=== PATIENT | female | born 1990 | race Two or more races ===

== ENCOUNTER 2017-04-03 20:06 | Emergency (ER) | payer OTHER ==
[2017-04-03 20:13] VITALS: BP 116/81; PULSE 81; TEMP 98.3; BMI 28.8
--- NOTE | 2017-04-03 20:44 | PDOC ---
History of Present Illness - General Chief Complaint: Sore Throat Stated Complaint: COLD SYMPTOMS Time Seen by Provider: 04/03/17 20:18 - History of Present Illness Initial Comments: 04/03/17 20:49 CHIEF COMPLAINT: HISTORY OF PRESENT ILLNESS: 26-year-old female with history of hypothyroidism presents to [facility] with cold symptoms intermittently for the last 2 months. Patient reports that 2 weeks ago she started having some sinus pressure, congestion, and cough, patient reports that she wakes up in the mornings with some productive cough with phlegm, and she feels her ears are itchy and has some pressure. 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 Patient has not taken any Motrin or Tylenol as she has not had any fever or chills. She denies any contact with homeless shelters or clients with TB. No recent travel or sick contacts. PAST MEDICAL HISTORY: Denies past medical history FAMILY HISTORY: Denies SOCIAL HISTORY:Denies tobacco, alcohol, illicit drug use. SURGICAL HISTORY: Denies ALLERGIES: No known drug allergies REVIEW OF SYSTEMS General/Constitutional: Denies fever or chills. Denies weakness, weight change. HEENT: Sinus pressure. Denies change in vision. Denies ear pain or discharge. Denies sore throat. Cardiovascular: Denies chest pain or shortness of breath. Respiratory: Intermittent coughing and sneezing for the last 2 months. Denies cough, wheezing, or hemoptysis. Gastrointestinal: Denies nausea, vomiting, diarrhea or constipation. Denies rectal bleeding. Genitourinary: Denies dysuria, frequency, or change in urination. Musculoskeletal: Denies joint or muscle swelling or pain. Denies neck or back pain. Skin and breasts: Denies rash or easy bruising. PHYSICAL EXAM General Appearance: Well-appearing, appropriately dressed. No apparent distress , no intoxication. HEENT: EOMI, PERRLA, normal ENT inspection, normal voice, TMs normal, pharynx normal. No conjunctival pallor. No photophobia, scleral icterus. Neck: Supple. Trachea midline. No tenderness, rigidity, carotid bruit, stridor , lymphadenopathy, or thyromegaly. Respiratory/Chest: Lungs CTAB. No shortness of breath, chest tenderness, respiratory distress, accessory muscle use. No crackles, rales, rhonchi, stridor , wheezing, dullness Cardiovascular: RRR. S1, S2. No JVD, murmur, bradycardia, tachycardia. Vascular Pulses: Dorsalis-Pedis (R): 2+, Dorsalis-Pedis (L): 2+ Gastrointestinal/Abdominal: Normal bowel sounds. Abdomen soft, non-distended. No tenderness or rebound tenderness. No organomegaly, pulsatile mass, guarding , hernia, hepatomegaly, splenomegaly. Lymphatic: No adenopathy, tenderness. Musculoskeletal/Extremities: Normal inspection. FROM of all extremities, normal capillary refill. Pelvis Stable. No CVA tenderness. No tenderness to extremities, pedal edema, swelling, erythema or deformity. Integumentary: Appropriate color, dry, warm. No cyanosis, erythema, jaundice or rash Neurologic: vehicle sales professional II-XII intact. Fully oriented, alert. Appropriate mood/affect. Motor strength 5/5. No appreciable EOM palsy, facial droop or sensory deficit. Past History - Past Medical History Allergies/Adverse Reactions: Allergies Allergy/AdvReac Type Severity Reaction Status Date / Time No Known Allergies Allergy Verified 04/03/17 20:10 Home Medications: Ambulatory Orders Levothyroxine [Synthroid -] 75 mcg PO DAILY 03/27/16 Diphenhydramine HCl [Benadryl -] 25 mg PO HS PRN #21 capsule 04/03/17 Loratadine [Claritin] 10 mg PO DAILY #30 tablet 04/03/17 Pseudoephedrine HCl [Sudafed 12 Hour] 120 mg PO BID PRN #20 tablet.er 04/03/17 Hypercholesterolemia: Yes Thyroid Disease: Yes (hypo) - Psycho/Social/Smoking Cessation Hx Suicidal Ideation: No Smoking History: Never smoked Hx Alcohol Use: No Drug/Substance Use Hx: No Substance Use Type: None *Physical Exam - Vital Signs Last Vital Signs Temp Pulse Resp BP Pulse Ox 98.3 F 81 16 116/81 98 04/03/17 20:11 04/03/17 20:11 04/03/17 20:11 04/03/17 20:11 04/03/17 20:11 Medical Decision Making - Medical Decision Making 04/03/17 20:52 26-year-old female with history of hypothyroidism presents to [facility] with cold symptoms intermittently for the last 2 months. Exam unremarkable. Likely seasonal allergies as symptoms come and go. Claritin, sudafed, benadryl rxes sent to pharm Advised patient to take medications as prescribed and to f/u with PCP if symptoms persist. Advised patient of signs and symptoms for return to ER; patient verbalize understanding agrees to plan. *DC/Admit/Observation/Transfer Diagnosis at time of Disposition: Allergic rhinitis Qualifiers: Allergic rhinitis trigger: unspecified Allergic rhinitis seasonality: seasonal Qualified Code(s): J30.2 - Other seasonal allergic rhinitis - Discharge Dispostion Disposition: HOME Condition at time of disposition: Stable Admit: No - Prescriptions Prescriptions: Diphenhydramine HCl [Benadryl -] 25 mg PO HS PRN #21 capsule PRN Reason: allergies Loratadine [Claritin] 10 mg PO DAILY #30 tablet Pseudoephedrine HCl [Sudafed 12 Hour] 120 mg PO BID PRN #20 tablet.er PRN Reason: congestion - Referrals Referrals: Ronan Wolf MD [Primary Care Provider] - - Patient Instructions Printed Discharge Instructions: DI for Allergic Rhinitis Additional Instructions: Please take medications as prescribed and follow up with your primary care doctor next week if symptoms persist. As discussed, if you develop fever, nausea , chills, diarrhea, or any new or worsening symptoms, please return to ER.
== END 2017-04-03 21:00 | disposition home or self-care (01) ==
LOC: JERFT 20:06
DX: J30.2 Other seasonal allergic rhinitis (principal); E03.9 Hypothyroidism, unspecified; E78.00 Pure hypercholesterolemia, unspecified
CPT/HCPCS: 99281-25

== ENCOUNTER 2017-12-16 07:23 | Emergency (ER) | payer OTHER ==
[2017-12-16 07:49] VITALS: BP 129/86; PULSE 110; TEMP 101.4; BMI 28.9
[2017-12-16] MEDS ORDERED: ACETAMINOPHEN 325 MG TABLET (FP) PO ONE (08:31)
[2017-12-16] MEDS ORDERED: ACETAMINOPHEN 325 MG TABLET (FP) ONE (08:35)
--- NOTE | 2017-12-16 08:39 | PDOC ---
Attending Attestation - Resident Resident Name: Rk Rush - ED Attending Attestation I have performed the following: I have examined & evaluated the patient, The case was reviewed & discussed with the resident, I agree w/resident's findings & plan, Exceptions are as noted - HPI HPI: 12/16/17 08:37 27y F hx of pre -dm, hypothyroidism, presents with complaint of fever, sore throat, headache, cough. No cp, sob, diehl, hemotpysis, lower extremity edema, vomiting, abd pain. lungs clear well apearing NAD posterior pharynx clear HR rrr abd soft notnender no pitting edema suspect influenza/flu like illness will terat with tamiflu pmd fu in 4-5 days - Physicial Exam PE: 12/17/17 07:45 see above - Medical Decision Making 12/17/17 07:45 see above
--- NOTE | 2017-12-16 08:48 | PDOC ---
History of Present Illness - General Chief Complaint: Weakness Stated Complaint: WEAKNESS Time Seen by Provider: 12/16/17 07:39 History Source: Patient Exam Limitations: No Limitations - History of Present Illness Initial Comments: 12/16/17 08:45 The patient is a 27F with a PMH of prediabetes and hypothyroidism who presents to the ER with flu-like symptoms. The patient states that her fever, sore throat , and cough have been present for 1 day. She states that every time she coughs she gets a bad headache. She denies any symptoms of CP, SOB, but admits to nausea with no vomiting. She states that her father also has symptoms like hers. Past History - Past Medical History Allergies/Adverse Reactions: Allergies Allergy/AdvReac Type Severity Reaction Status Date / Time No Known Allergies Allergy Verified 12/16/17 07:31 Home Medications: Ambulatory Orders Levothyroxine [Synthroid -] 88 mcg PO DAILY 03/27/16 Ondansetron [Zofran *Odt*] 8 mg SL BID #10 od.tablet 12/16/17 Oseltamivir Phosphate [Tamiflu -] 75 mg PO BID #10 capsule 12/16/17 COPD: No Hypercholesterolemia: Yes Thyroid Disease: Yes (hypo) - Suicide/Smoking/Psychosocial Hx Smoking History: Never smoked Have you smoked in the past 12 months: No Information on smoking cessation initiated: No Hx Alcohol Use: No Drug/Substance Use Hx: No Substance Use Type: None Review of Systems - Review of Systems Able to Perform ROS?: Yes Comments:: 12/16/17 08:50 GENERAL/CONSTITUTIONAL: Positive for fevers and chills. No weakness. HEAD, EYES, EARS, NOSE AND THROAT: Positive for sore throat. No change in vision. No ear pain or discharge. CARDIOVASCULAR: No chest pain, palpitations, or lightheadedness. RESPIRATORY: Positive for cough. No wheezing, shortness of breath, or hemoptysis. GASTROINTESTINAL: Positive for nausea. No vomiting, diarrhea, constipation, or abdominal pain. GENITOURINARY: No dysuria, frequency, hematuria, or change in urination. MUSCULOSKELETAL: Postive for myalgias. No neck or back pain. SKIN: No rash or lesions. NEUROLOGIC: Positive for headache. No numbness, tingling, weakness, loss of consciousness, or change in strength/sensation. ENDOCRINE: No increased thirst. No abnormal weight change. HEMATOLOGIC/LYMPHATIC: No anemia, easy bleeding, or history of blood clots. ALLERGIC/IMMUNOLOGIC: No hives or skin allergy. Is the patient limited Lithuanian proficient: No *Physical Exam - Vital Signs Last Vital Signs Temp Pulse Resp BP Pulse Ox 101.4 F H 110 H 18 129/86 95 12/16/17 07:26 12/16/17 07:26 12/16/17 07:26 12/16/17 07:26 12/16/17 07:26 - Physical Exam Comments: 12/16/17 08:51 GENERAL: Well developed, well nourished. Awake and alert. No acute distress. HEENT: Normocephalic, atraumatic. Hearing grossly normal. Moist mucous membranes. PERRLA, EOMI. No conjunctival pallor. Sclera are non-icteric. Oropharynx is clear. NECK: Supple. Full ROM. No JVD. . No lymphadenopathy. CARDIOVASCULAR: Regular rate and rhythm. No murmurs, rubs, or gallops. PULMONARY: No evidence of respiratory distress. Lungs clear to auscultation bilaterally. No wheezing, rales or rhonchi. ABDOMINAL: Soft. Non-tender. Non-distended. No rebound or guarding. GENITOURINARY: No CVA tenderness bilaterally. MUSCULOSKELETAL: Normal range of motion at all joints. No bony deformities or tenderness. EXTREMITIES: No cyanosis. No clubbing. No edema. No calf tenderness. SKIN: Warm and dry. Normal capillary refill. No rashes. No jaundice. NEUROLOGICAL: Alert, awake, appropriate. Cranial nerves 2-12 intact. Normal speech. Gait is normal without ataxia. PSYCHIATRIC: Cooperative. Good eye contact. Appropriate mood and affect. ED Treatment Course - Medications Given in the ED: ED Medications Discontinued Medications Generic Name Dose Route Start Last Admin Trade Name Freq PRN Reason Stop Dose Admin Acetaminophen 650 mg 12/16/17 08:31 12/16/17 08:36 Tylenol - PO 12/16/17 08:32 650 mg ONCE ONE Administration Medical Decision Making - Medical Decision Making 12/16/17 08:51 The patient is a 27F with a PMH of prediabetes and hypothyroidism who presents to the ER with flu-like symptoms. I have informed the patient to control her fever and aches with tylenol and motrin and to stay hydrated. Will send tamiflu and zofran and PCP f/u. *DC/Admit/Observation/Transfer Diagnosis at time of Disposition: Influenza - Discharge Dispostion Disposition: HOME Condition at time of disposition: Stable Admit: No - Prescriptions Prescriptions: Ondansetron [Zofran *Odt*] 8 mg SL BID #10 od.tablet Oseltamivir Phosphate [Tamiflu -] 75 mg PO BID #10 capsule - Referrals Referrals: Ronan Wolf MD [Primary Care Provider] - - Patient Instructions Printed Discharge Instructions: Influenza Additional Instructions: Please return to the ER if symptoms persist, worsen, or new symptoms arise. Please follow up with your primary care physician in 2-3 days. Please return to the ER if you have any signs or symptoms of chest pain, shortness of breath, uncontrollable fever, chills, nausea, vomiting, numbness, tingling, or weakness in any part of your body, changes in vision, or slurred speech. Please take your medications as prescribed. - Post Discharge Activity
== END 2017-12-16 09:05 | disposition home or self-care (01) ==
LOC: JER 07:23
DX: J11.1 Influenza due to unidentified influenza virus with other respiratory manifestations (principal); E03.9 Hypothyroidism, unspecified; E78.00 Pure hypercholesterolemia, unspecified
CPT/HCPCS: 99283-25

== ENCOUNTER 2022-04-15 13:51 | Emergency (ER) | payer OTHER ==
[2022-04-15 14:09] VITALS: BP 111/78; PULSE 75; TEMP 97.8; BMI 29.9
[2022-04-15 15:21] LABS: BASO % 0.7 % (0-2.0); EOS % 2.2 % (0-4.5); HEMOGLOBIN 12.4 GM/dL (10.7-15.3); LYMPH % 34.9 % (8-40); MCH 28.1 pg (25.7-33.7); MCHC 33.5 g/dl (32.0-36.0); MEAN CELL VOLUME 83.9 fl (80-96); MEAN PLT VOLUME 8.3 fl (7.5-11.1); MONO % 6.3 % (3.8-10.2); NEUT % 55.9 % (42.8-82.8); PLATELET COUNT 309 10^3/uL (134-434); RBC 4.41 M/mm3 (3.60-5.2); RDW 13.5 % (11.6-15.6)
[2022-04-15 15:39] LABS: CHLORIDE 106 mmol/L (98-107); SODIUM 137 mmol/L (136-145)
[2022-04-15 15:42] LABS: ALBUMIN 3.6 g/dl (3.4-5.0); BLOOD UREA NITROGEN 8.2 mg/dL (7-18); CALCIUM 8.3 mg/dL (8.5-10.1); CO2 28 mmol/L (21-32); GLUCOSE,RANDOM 99 mg/dL (74-106); LIPASE 123 U/L (73-393)
[2022-04-15 15:45] LABS: CREATININE 0.8 mg/dL (0.55-1.3); SGOT/AST 52 U/L (15-37); SGPT/ALT 30 U/L (13-61)
[2022-04-15 15:47] LABS: BILIRUBIN,TOTAL 0.4 mg/dL (0.2-1)
[2022-04-15 15:48] LABS: ALK PHOS 53 U/L (45-117); ANION GAP 3 MMOL/L (8-16)
[2022-04-15 15:52] LABS: EPI CELLS 11 /uL (0-25.1); HYALINE CASTS 1 /uL (0-3.1); URINE APPEARANCE CLEAR; URINE BACTERIA 101 /uL (0-1359); URINE BILIRUBIN NEGATIVE (NEGATIVE); URINE COLOR YELLOW; URINE GLUCOSE (UA) NEGATIVE (NEGATIVE); URINE KETONE NEGATIVE (NEGATIVE); URINE LEUK ESTERASE 1+ (NEGATIVE); URINE NITRITE NEGATIVE (NEGATIVE); URINE PROTEIN NEGATIVE (NEGATIVE); URINE UROBILINOGEN 0.2 mg/dL (0.2-1.0); URINE WBC 52 /uL (0-25.8)
[2022-04-15 15:53] LABS: HCG,QUALITATIVE URINE Negative; URINE RBC 609.8 /uL (0-23.9)
[2022-04-15 18:26] LABS: CALCIUM 8.7 mg/dL (8.5-10.1)
[2022-04-15 18:27] LABS: ALBUMIN 3.8 g/dl (3.4-5.0); BLOOD UREA NITROGEN 8.8 mg/dL (7-18)
[2022-04-15 18:30] LABS: CREATININE 0.7 mg/dL (0.55-1.3)
[2022-04-15 18:31] LABS: BILIRUBIN,TOTAL 0.2 mg/dL (0.2-1)
[2022-04-15 18:33] LABS: TOT PROT 8.1 g/dl (6.4-8.2)
== END 2022-04-15 20:15 | disposition left against medical advice (07) ==
LOC: JER 13:51
DX: R10.32 Left lower quadrant pain (principal)
CPT/HCPCS: 36415; 74177-TC; 76830-TC; 80053; 81003; 83690; 84703; 85025; 99285-25

== ENCOUNTER 2022-05-14 23:02 | Emergency (ER) | payer OTHER ==
[2022-05-14 23:18] VITALS: BP 123/81; PULSE 81; TEMP 98.1; BMI 30.2
[2022-05-15 00:02] LABS: BASO % 0.7 % (0-2.0); HEMATOCRIT 35.1 % (32.4-45.2); HEMOGLOBIN 11.9 GM/dL (10.7-15.3); LYMPH % 30.9 % (8-40); MCH 28.7 pg (25.7-33.7); MEAN CELL VOLUME 84.5 fl (80-96); MEAN PLT VOLUME 7.1 fl (7.5-11.1); MONO % 6.4 % (3.8-10.2); PLATELET COUNT 320 10^3/uL (134-434); RBC 4.16 M/mm3 (3.60-5.2); WHITE BLOOD COUNT 15.5 K/mm3 (4.0-10.0)
[2022-05-15 00:17] LABS: EPI CELLS 9 /uL (0-25.1); HYALINE CASTS 0 /uL (0-3.1); PH,URINE 6.5 (5.0-8.0); URINE APPEARANCE CLEAR; URINE BACTERIA 45 /uL (0-1359); URINE BILIRUBIN NEGATIVE (NEGATIVE); URINE COLOR YELLOW; URINE GLUCOSE (UA) NEGATIVE (NEGATIVE); URINE KETONE NEGATIVE (NEGATIVE); URINE LEUK ESTERASE NEGATIVE (NEGATIVE); URINE NITRITE NEGATIVE (NEGATIVE); URINE PROTEIN 1+ (NEGATIVE); URINE UROBILINOGEN 0.2 mg/dL (0.2-1.0); URINE WBC 14 /uL (0-25.8)
[2022-05-15 00:35] LABS: URINE RBC 222.9 /uL (0-23.9); YEAST NEGATIVE (NEGATIVE)
== END 2022-05-15 10:48 | disposition home or self-care (01) ==
LOC: JER 23:02
DX: N93.9 Abnormal uterine and vaginal bleeding, unspecified (principal)
CPT/HCPCS: 36415; 76817-TC; 81003; 84702; 85025; 86850; 86900; 86901; 99284-25